=== PATIENT | female | born 1990 | race Two or more races ===

== ENCOUNTER 2024-02-28 08:07 | Emergency (ER) | payer MEDICAID, OTHER ==
[~2024-02-28] VITALS: Ht 160 cm; Wt 65.3 kg
[2024-02-28 08:29] VITALS: TEMP 97.9
--- NOTE | 2024-02-28 08:51 | ED.PDOC ---
[employer] FABRICATOR ASSEMBLER HPI Comments This is a pleasant 33 year old female who is aprox 5 weeks who presents for possible miscarriage. She was also seen at [facility] 2 weeks ago for vaginal spotting, discharged same day and advised to f/u with PCP Today she reports she fell from a set of stairs, fell from the 4th step and c/o of left hand pain. Now she also c/o vaginal bleeding 1 hours ago associated with RLQ pain that is rated as moderate to severe Chief Complaint: Upper Extremity Time Seen by MD: 08:15 Reviewed Notes: Nurses Notes, Medications, Allergies Allergies: Coded Allergies: NO KNOWN ALLERGIES (Unverified , 02/28/24) Home Meds Active Scripts Acetaminophen (Acetaminophen) 325 Mg Tab, 325 MG PO QIDP for 10 Days, #40 TAB 0 Refills Prov:LYNSEY MORGAN FIELD MARKETING TEAM LEADER 02/28/24 Ondansetron Odt 4MG Tab (ZOFRAN PO) 4 Mg Tb, 4 MG PO DAILYP PRN for 5 Days, #5 TAB 0 Refills ODT TAB-DISSOLVE IN MOUTH, THEN SWALLOW Prov:LYNSEY MORGAN FIELD MARKETING TEAM LEADER 02/28/24 Information Source: Patient Past Medical History PAST MEDICAL HISTORY: Denies Surgical History: Denies all surgeries SHALE MINER BLASTING History: No Pertinent SHALE MINER BLASTING History All Other Systems: Reviewed and Negative (Per HPI) Physical Exam General Appearance: No Apparent Distress, Normal HEENT: Normal ENT Inspection, Pharynx Normal, TMs Normal Neck: Full Range of Motion, Non-Tender, Normal, Normal Inspection Respiratory: Chest Non-Tender, Lungs Clear, No Accessory Muscle Use, No Respiratory Distress, Normal Breath Sounds Cardiovascular: No Edema, No JVD, No Murmur, No Gallop, Normal Peripheral Pulses, Regular Rate/Rhythm Breast Exam: Deferred Gastrointestinal: No Organomegaly, Non Tender, No Pulsatile Mass, Normal Bowel Sounds, Soft Genitalia: Deferred Pelvic: Vaginal Bleeding (General Accounting Manager in room : Yady CHOUDHARY) Rectal: Deferred Extremities: No calf tenderness, Normal capillary refill, Normal inspection, Normal range of motion, Non-tender, No pedal edema Musculoskeletal : Apperance: Normal Neurologic: Alert, business operations analyst II-XII nml as Tested, No Motor Deficits, Normal Affect, Normal Mood, No Sensory Deficits Cerebellar Function: Normal Reflexes: Normal Skin: Dry, Normal Color, Warm Lymphatic: No Adenopathy Was a procedure done? Was a procedure done?: No Differential Diagnosis (SHALE MINER BLASTING) Vaginal Bleeding: - Threatened, Ectopic , UTI, Vaginitis X-Ray, Labs, Meds, VS Vital Signs Date Time Temp Pulse Resp B/P (MAP) Pulse Ox O2 Delivery O2 Flow Rate FiO2 02/28/24 15:20 75 18 119/74 (89) 98 02/28/24 13:50 66 18 105/53 (70) 98 02/28/24 08:29 66 18 96 Room Air 02/28/24 08:29 97.9 66 18 154/86 (108) 96 97.9 02/28/24 08:16 97.9 66 18 154/86 (108) 96 Lab Test 02/28/24 10:04 02/28/24 08:55 Range/Units White Blood Count 3.6 L 4.4-10.8 10^3/uL Red Blood Count 4.08 4.0-5.20 10^6/uL Hemoglobin 12.0 L 12.2-16.2 g/dL Hematocrit 36.5 36.0-46.0 % Mean Corpuscular Volume 89.4 80.0-100.0 fL Mean Corpuscular Hemoglobin 29.4 28.0-32.0 pg Mean Corpuscular Hemoglobin Concent 32.8 32.0-36.0 g/dL Red Cell Distribution Width 12.7 11.8-14.3 % Platelet Count 238 140-450 10^3/uL Mean Platelet Volume 9.0 6.9-10.8 fL Neutrophils (%) (Auto) 58.7 37.0-80.0 % Lymphocytes (%) (Auto) 27.2 10.0-50.0 % Monocytes (%) (Auto) 12.0 0.0-12.0 % Eosinophils (%) (Auto) 1.4 0.0-7.0 % Basophils (%) (Auto) 0.7 0.0-2.0 % Neutrophils # (Auto) 2.1 1.6-8.6 10 ^3/uL Lymphocytes # (Auto) 1.0 0.4-5.4 10 ^3/uL Monocytes # (Auto) 0.4 0-1.3 10 ^3/uL Eosinophils # (Auto) 0.1 0-0.8 10 ^3/uL Basophils # (Auto) 0 0-0.2 10 ^3/uL Nucleated Red Blood Cells 0.0 % Sodium Level 143 136-145 mmol/L Potassium Level 3.2 L 3.5-5.1 mmol/L Chloride Level 111 H 98-107 mmol/L Carbon Dioxide Level 25 20-31 mmol/L Anion Gap 7 5-15 Blood Urea Nitrogen 6 L 9-23 mg/dL Creatinine 0.63 0.550-1.02 mg/dL Glomerular Filtration Rate Calc 120 >90 mL/min BUN/Creatinine Ratio 9.5 L 10.0-20.0 Serum Glucose 88 74-106 mg/dL Calcium Level 9.5 8.7-10.4 mg/dL Total Bilirubin 0.5 0.2-1.0 mg/dL Aspartate Amino Transferase (AST) 11 L 13-40 U/L Alanine Aminotransferase (ALT) 13 7-40 U/L Alkaline Phosphatase 43 L 46-116 U/L Total Protein 7.0 5.7-8.2 g/dL Albumin 4.3 3.2-4.8 g/dL Beta HCG, Quantitative 89.0 H 1.5-4.2 mIU/mL Urine Color Light-red Yellow Urine Clarity Ex.turbid Clear Urine pH 6.0 5.0-9.0 Urine Specific [place] 1.028 1.001-1.035 Urine Protein 2+ H Negative Urine Ketones Trace Negative Urine Blood 3+ H Negative /uL Urine Nitrite Negative Negative Urine Bilirubin Negative Negative Urine Urobilinogen Normal Negative mg/dL Urine Leukocyte Esterase 1+ Negative /uL Urine RBC 5858 0 - 4 /hpf Urine WBC 454 0 - 5 /hpf Urine Squamous Epithelial Cells Mod <5 /hpf Urine Bacteria None seen None Seen /hpf Urine Mucus Few None Seen Urine Glucose Normal Normal mg/dL Current Medications Medications (Trade) Dose Ordered Sig/Mike Route Start Time Stop Time Status Last Admin Acetaminophen/ Hydrocodone Bitart ([place] 7.5/325MG Tab) 1 tab ONCE ONCE PO 02/28/24 11:30 02/28/24 11:31 DC 02/28/24 11:40 Sodium Chloride 2,000 ml @ 1,000 mls/hr Q2H ONCE IV 02/28/24 13:45 02/28/24 15:26 DC 02/28/24 13:48 Ondansetron HCl (Zofran Po) 4 mg ONCE ONCE PO 02/28/24 14:15 02/28/24 14:16 DC 02/28/24 14:18 PATIENT: GINO SANTOYO ACCT: [id number] UNIT: [id number] : 1990 LOC: ER ROOM / BED: / AGE / SEX: 33 / F ADM STATUS: REG ER SERVICE [id number] ORDERING PHYSICIAN: LYNSEY MORGAN NP PROCEDURE(s): OB4US - OB ULTRASOUND COMP LESS 14WKS REASON: r/o miscarriage ORDER NUMBER(s): [id number], ACCESSION NUMBER(s): [id number] INDICATION: r/o miscarriage TECHNIQUE: Multiple real-time grayscale transabdominal and transvaginal s onographic images along with color and duplex Doppler of the uterus and ovaries were obtained. COMPARISON: None FINDINGS: The uterus measures 9.4 x 5.1 x 7.7 cm. The uterus is heterogeneous in echotexture. The endometrial stripe measures 1.2 cm. The right ovary measures 4.0 x 2.8 x 2.2 cm. Trace free fluid adjacent to the right ovary. The left ovary measures 2.6 x 3.5 x 2.1 cm. No intrauterine is visualized. Subsequent color and duplex Doppler interrogation of the ovaries demonstrated symmetric vascular flow to both ovaries, though this does not exclude the possibility of torsion due to the dual blood supply. IMPRESSION: Thickened endometrium, without visualized gestational sac, pole or cardiac activity. Differential considerations include early, normal intrauterine , an anembryonic and spontaneous . Recommend correlation with follow-up beta hCG levels. Repeat ultrasound could be performed if clinically indicated. ATED BY: MARY ELAINE MD DICTATED DATE/TIME: 02/28/241211 SIGNED BY: MARY ELAINE MD SIGNED DATE/TIME: 02/28/241211 CC: X-Ray, Labs, Meds, VS Comment FINDINGS: The uterus measures 9.4 x 5.1 x 7.7 cm. The uterus is heterogeneous in echotexture. The endometrial stripe measures 1.2 cm. The right ovary measures 4.0 x 2.8 x 2.2 cm. Trace free fluid adjacent to the right ovary. The left ovary measures 2.6 x 3.5 x 2.1 cm. No intrauterine is visualized. Subsequent color and duplex Doppler interrogation of the ovaries demonstrated symmetric vascular flow to both ovaries, though this does not exclude the possibility of torsion due to the dual blood supply. IMPRESSION: Thickened endometrium, without visualized gestational sac, pole or cardiac activity. Differential considerations include early, normal intrauterine , an anembryonic and spontaneous . Recommend correlation with follow-up beta hCG levels. Repeat ultrasound could be performed if clinically indicated. On reevaluation, patient had symptomatic improvement. Patient is stable for discharge at this time. External notes reviewed. Test results and diagnostic imaging interpreted. All diagnostic findings, discharge care, education and instructions provided Follow-up with your OB in 24-48 hours Patient verbalized understanding and agreed to treatment plan Vital signs stable, afebrile, no acute distress noted Patient ambulatory with strong steady gait Advised to return precautions for any new or worsening symptoms, return to ER immediately for re-evaluation Patient is aware that the purpose of this visit was for an acute medical emergency requiring emergent stabilization. Chronic conditions, including malignancies have not been ruled out. Patient is instructed to follow up with PCP as directed and discharge instructions for continued care and workup. If unable to arrange follow-up, patient is to return to the emergency department for reassessment. Patient (parent or legal guardian if applicable) was given verbal and written discharge instructions and acknowledges understanding. Time of 1ST Reevaluation: 12:50 Reevaluation 1ST: Improved Patient Education/Counseling: Diagnosis, Treatment Family Education/Counseling: Diagnosis, Treatment Departure 1 Departure Time of Disposition: 15:17 Impression: Primary Impression: Threatened Disposition: HOME / SELF CARE / HOMELESS Condition: Stable e-Prescriptions Acetaminophen (Acetaminophen) 325 Mg Tab 325 MG PO QIDP for 10 Days, #40 TAB 0 Refills Prov: LYNSEY MORGAN NP 02/28/24 Ondansetron Odt 4MG Tab (ZOFRAN PO) 4 Mg Tb 4 MG PO DAILYP PRN for 5 Days, #5 TAB 0 Refills ODT TAB-DISSOLVE IN MOUTH, THEN SWALLOW Prov: LYNSEY MORGAN NP 02/28/24 Discharged With: Self Critical Care Note Critical Care Time?: No Stability Stability form required: No Heart Score Heart Score: Heart Score Response (Comments) Value History N/A 0 EKG N/A 0 Age N/A 0 Risk Factors N/A 0 Troponin N/A 0 Total 0 LYNSEY MORGAN NP Feb 28, 2024 08:51
[2024-02-28 09:13] LABS: Urine Bacteria None Seen /hpf (None Seen)
[2024-02-28 09:34] LABS: Urine Blood 3+ /uL (Negative); Urine Clarity Ex.Turbid (Clear); Urine Color Light-Red (Yellow); Urine Mucus FEW (None Seen); Urine Protein, UAD 2+ (Negative); Urine Specific Gravity 1.028 (1.001-1.035); Urine Urobilinogen Normal (Negative); Urine WBC 454 /hpf (0 - 5)
[2024-02-28 10:30] LABS: Basophils # (auto) 0 10 ^3/uL (0-0.2); Basophils % (auto) 0.7 % (0.0-2.0); Eosinophils # (auto) 0.1 10 ^3/uL (0-0.8); Eosinophils % (auto) 1.4 % (0.0-7.0); Hematocrit 36.5 % (36.0-46.0); Lymphocytes % (auto) 27.2 % (10.0-50.0); Mean Corpuscular Hemoglobin 29.4 pg (28.0-32.0); Mean Corpuscular Hgb Conc. 32.8 g/dL (32.0-36.0); Mean Corpuscular Volume 89.4 fL (80.0-100.0); Monocytes # (auto) 0.4 10 ^3/uL (0-1.3); Neutrophils # (auto) 2.1 10 ^3/uL (1.6-8.6); Neutrophils % (auto) 58.7 % (37.0-80.0); Platelet Count (auto) 238 10^3/uL (140-450); Red Blood Cells 4.08 10^6/uL (4.0-5.20); Red Cell Distribution Width 12.7 % (11.8-14.3); White Blood Cell 3.6 10^3/uL (4.4-10.8)
[2024-02-28] MEDS: HYDROcodone-ACET 7.5/325MG TAB PO ONE (11:40)
[2024-02-28 11:54] LABS: Alanine Aminotransferase 13 U/L (7-40); Albumin 4.3 g/dL (3.2-4.8); Alkaline Phosphatase 43 U/L (46-116); Anion Gap 7 (5-15); Aspartate Aminotransferase 11 U/L (13-40); BUN/Creatinine Ratio 9.5 (10.0-20.0); Bilirubin, Total 0.5 mg/dL (0.2-1.0); Blood Urea Nitrogen 6 mg/dL (9-23); Calcium 9.5 mg/dL (8.7-10.4); Carbon Dioxide 25 mmol/L (20-31); Chloride 111 mmol/L (98-107); Glucose 88 mg/dL (74-106); Potassium 3.2 mmol/L (3.5-5.1); Sodium 143 mmol/L (136-145)
--- NOTE | 2024-02-28 12:13 | DVH ---
INDICATION: r/o miscarriage TECHNIQUE: Multiple real-time grayscale transabdominal and transvaginal sonographic images along with color and duplex Doppler of the uterus and ovaries were obtained. COMPARISON: None FINDINGS: The uterus measures 9.4 x 5.1 x 7.7 cm. The uterus is heterogeneous in echotexture. The end ometrial stripe measures 1.2 cm. The right ovary measures 4.0 x 2.8 x 2.2 cm. Trace free fluid adjacent to the right ovary. The left ovary measures 2.6 x 3.5 x 2.1 cm. No intrauterine is visualized. Subsequent color and duplex Doppler interrogation of the ovaries demonstrated symmetric vascular flow to both ovaries, though this does not exclude the possibility of torsion due to the dual blood suppl y. IMPRESSION: Thickened endometrium, without visualized gestational sac, pole or cardiac activity. Diff erential considerations include early, normal intrauterine , an anembryonic and sp ontaneous . Recommend correlation with follow-up beta hCG levels. Repeat ultrasound could be performed if clinically indicated.
--- NOTE | 2024-02-28 13:02 | DVH ---
CLINICAL INDICATION: possible fracture TECHNIQUE: XY L HAND 3V XRAY FINDINGS/IMPRESSION: nondisplaced fracture of the 5th metacarpal
[2024-02-28] MEDS: SODIUM CHLORIDE 0.9% 2,000 ML IV ONE (13:48)
[2024-02-28] MEDS: ONDANSETRON ODT 4 MG TAB PO ONE (14:18)
[2024-02-28] MEDS ORDERED: ACET-1881 PO (15:18)
[2024-02-28] MEDS ORDERED: ZOFR4T PO (15:18)
[2024-02-28 15:20] VITALS: BP 119/74; PULSE 75; RESP 18; O2SAT 98
== END 2024-02-28 15:25 | disposition home or self-care (01) ==
LOC: ER 08:07
DX: O20.0 Threatened abortion (principal); Z3A.01 Less than 8 weeks gestation of pregnancy
CPT/HCPCS: 36415; 73130; 76801; 76817; 80053; 81001; 84702; 85025; 96360; 96361; 99284; J7030; Q0162